=== PATIENT | female | born 1950 | race Caucasian/White ===

== ENCOUNTER 2016-12-24 11:10 | Emergency (ER) | payer BC ==
[2016-12-24] MEDS ORDERED: NS 0.9% 1000 ML* 1,000 ML IV SCH (12:15)
--- NOTE | 2016-12-24 12:47 | UC ---
FLU HPI - HPI Summary HPI Summary: 2 DAYS OF BODY ACHES, FEVER TMAX 102.5, COUGH, CONGESTION, N/V AND JIMENEZ. 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 - History of Current Complaint Stated Complaint: COUGH Time Seen by Provider: 12/24/16 12:01 Hx Obtained From: Patient Onset/Duration: Sudden Onset, Lasting Days, Still Present Severity Currently: Moderate Severity Initially: Moderate Pain Intensity: 0 Pain Scale Used: 0-10 Numeric Associated Signs & Symptoms: Positive: Fever, Myalgia, Cough, Sore Throat, Nasal Congestion, Headache, Vomiting. Negative: Diarrhea Related Hx: Possible Flu/Infectious Exposure - Allergy/Home Medications Allergies/Adverse Reactions: Allergies Allergy/AdvReac Type Severity Reaction Status Date / Time No Known Allergies Allergy Verified 04/28/15 08:35 PMH/Surg Hx/FS Hx/Imm Hx Endocrine History Of: Reports: Thyroid Disease, Hypothyroidism Denies: Diabetes Cardiovascular History Of: Denies: Cardiac Disorders, Hypertension Respiratory History Of: Denies: Asthma - Surgical History Surgical History: Yes Surgery Procedure, Year, and Place: left hip replacement 2008 - Family History Known Family History: Negative: Hypertension - Social History Alcohol Use: Rare Substance Use Type: None Smoking Status (MU): Never Smoked Tobacco - Immunization History Most Recent Influenza Vaccination: 2016 Review of Systems Constitutional: Fever, Chills, Fatigue ENT: Sore Throat, Nasal Discharge Respiratory: Cough Cardiovascular: Negative Gastrointestinal: Vomiting, Other - NAUSEA Musculoskeletal: Myalgia Neurological: Headache All Other Systems Reviewed And Are Negative: Yes Physical Exam Triage Information Reviewed: Yes Appearance: No Pain Distress, Well-Nourished, Ill-Appearing - MODERATELY Vital Signs: Initial Vital Signs Temp 99.4 F 12/24/16 12:04 Pulse 98 12/24/16 12:04 Resp 20 12/24/16 12:04 BP 101/71 12/24/16 12:04 Pulse Ox 96 12/24/16 12:04 Vital Signs Reviewed: Yes Eyes: Positive: Conjunctiva Clear ENT: Positive: Hearing grossly normal, Pharynx normal, TMs normal Neck: Positive: Supple, Nontender, No Lymphadenopathy Respiratory Exam: Normal Cardiovascular: Positive: Tachycardia Abdomen Description: Positive: Soft Musculoskeletal: Positive: No Edema Neurological: Positive: Alert Psychological: Positive: Age Appropriate Behavior Skin: Negative: rashes Re-Evaluation - Re-Evaluation First Eval Re-Evaluation Time: 12:46 - FEELS BETTER AFTER ABOUT 500ML NS. WILL RECHECK AFTER FULL LITER IS IN Change: Improved Second Eval Re-Evaluation Time: 13:15 - 1 L NS COMPLETED. PT FEELS BETTER AND READY FOR D/C HOME WITH TAMIFLU. RECHECK BP 122/82 Change: Improved Flu Course/Dx - Differential Dx/Diagnosis Provider Diagnoses: INFLUENZA Discharge - Discharge Plan Condition: Stable Disposition: HOME Prescriptions: Oseltamivir CAP* [Tamiflu CAP*] 75 mg PO BID #10 cap Patient Education Materials: Influenza (ED) Forms: *Work Release Referrals: Jasper Castaneda MD [Medical Doctor] - If Needed Additional Instructions: STAY HYDRATED. OTC MEDS NEEDED FOR FEVER AND DISCOMFORT. FOLLOW-UP PCP IF NEEDED.
[2016-12-24 13:15] VITALS: BP 122/82
== END 2016-12-24 13:40 | disposition home or self-care (01) ==
LOC: UCEAST 11:10
DX: J11.1 Influenza due to unidentified influenza virus with other respiratory manifestations (principal); Z96.642 Presence of left artificial hip joint
CPT/HCPCS: 96360; 99212; G0463

== ENCOUNTER 2018-11-17 13:54 | Emergency (ER) | payer MEDICARE ==
[2018-11-17 14:20] VITALS: BP 119/72
--- NOTE | 2018-11-17 16:07 | ED ---
Lower Extremity - HPI Summary HPI Summary: 68 yo WF presents withe severe right knee pain, has h/o OA and has had her left hip replaced in the past. Pain is so bad that she cannot stand or walk well and already uses her walker for her chronic OA. Denies recent injury - History of Current Complaint Chief Complaint: UCLowerExtremity Stated Complaint: KNEE PAIN Time Seen by Provider: 11/17/18 14:06 Hx Obtained From: Patient Hx Last Menstrual Period: n Onset of Pain: Hours Onset/Duration: Still Present Severity Initially: Severe Severity Currently: Severe Pain Intensity: 9 - Allergies/Home Medications Allergies/Adverse Reactions: Allergies Allergy/AdvReac Type Severity Reaction Status Date / Time No Known Allergies Allergy Verified 11/17/18 14:23 Home Medications: Home Medications DULoxetine DR CAP* [Cymbalta CAP*] 30 mg PO DAILY 11/17/18 [History Confirmed ] PMH/Surg Hx/FS Hx/Imm Hx Previously Healthy: Yes Endocrine/Hematology History: Reports: Hx Thyroid Disease - hypo Denies: Hx Diabetes Cardiovascular History: Denies: Hx Hypertension Respiratory History: Denies: Hx Asthma, Hx Chronic Obstructive Pulmonary Disease (COPD) GI History: Denies: Hx Ulcer - Cancer History Hx Chemotherapy: No Hx Radiation Therapy: No - Surgical History Surgery Procedure, Year, and Place: left hip replacement 2008 Infectious Disease History: No Infectious Disease History: Denies: Hx Clostridium Difficile, Hx Hepatitis, Hx Human Immunodeficiency Virus (HIV), Hx of Known/Suspected MRSA, Hx Shingles, Hx Tuberculosis, Hx Known/ Suspected VRE, Hx Known/Suspected VRSA, History Other Infectious Disease, Traveled Outside the [place] in Last 30 Days - Family History Known Family History: Negative: Hypertension - Social History Alcohol Use: Occasionally Substance Use Type: Reports: None Smoking Status (MU): Never Smoked Tobacco Review of Systems Constitutional: Negative Eyes: Negative ENT: Negative Cardiovascular: Negative Respiratory: Negative Gastrointestinal: Negative Genitourinary: Negative Musculoskeletal: Other - see HPI Skin: Negative All Other Systems Reviewed And Are Negative: Yes Physical Exam - Summary Physical Exam Summary: Vital Signs Reviewed: Yes Skin: Positive: Warm Head/Face: Positive: Normal Head/Face Inspection Eyes: Positive: Normal ENT: Positive: Normal ENT inspection Neck: Positive: Supple Respiratory/Lung Sounds: Positive: Clear to Auscultation Cardiovascular: Positive: Normal, RRR, S1, S2 Abdomen Description: Positive: Nontender Musculoskeletal: Positive: right knee swelling ROM limited due to pain, moderate right knee swelling, NVI Neurological: Positive: Normal Psychiatric: Positive: Normal, Affect/Mood Appropriate Vital Signs On Initial Exam: Initial Vitals Temp Pulse Resp BP Pulse Ox 36.6 C 88 18 119/72 95 11/17/18 14:16 11/17/18 14:16 11/17/18 14:16 11/17/18 14:16 11/17/18 14:16 Diagnostics - Vital Signs Vital Signs Temp Pulse Resp BP Pulse Ox 11/17/18 14:16 36.6 C 88 18 119/72 95 - Laboratory Lab Statement: Any lab studies that have been ordered have been reviewed, and results considered in the medical decision making process. Lower Extremity Course/Dx - Course Assessment/Plan: Right knee pain- XR of right knee- Severe OA of knee with large lateral effusion- advised to follow up with PCP and ortho for eval for knee effusion and decompression if swelling worsens. KNee brace, RICE, NSAIDS. Her ortho is in [place] and states she will f/u [facility] - Diagnoses Provider Diagnoses: Knee joint effusion, Primary osteoarthritis of right knee Discharge - Sign-Out/Discharge Documenting (check all that apply): Patient Departure All imaging exams completed and their final reports reviewed: Yes - Discharge Plan Condition: Critical Disposition: HOME Prescriptions: Naproxen [Naproxen 500 mg tab] 500 mg PO BID 10 Days #20 tablet. Patient Education Materials: Osteoarthritis (ED), Knee Pain (ED), Swollen Joint (ED) Forms: *Work Release Referrals: Jasper Castaneda MD [Primary Care Provider] - Additional Instructions: please follow up with PCP and ortho for possible drainage of knee effusion - Billing Disposition and Condition Condition: CRITICAL Disposition: Home
== END 2018-11-17 16:00 | disposition home or self-care (01) ==
LOC: UCEAST 13:54
DX: M17.11 Unilateral primary osteoarthritis, right knee (principal); M25.461 Effusion, right knee; Z96.642 Presence of left artificial hip joint
CPT/HCPCS: 99213; G0463